=== PATIENT | female | born 1990 | race American Indian/Alaskan Native ===

== ENCOUNTER 2017-12-03 13:44 | Emergency (ER) | payer SELFPAY ==
[2017-12-03] MEDS ORDERED: NACL 0.9% 1000 ML 1,000 ML IV ONE (14:56)
--- NOTE | 2017-12-03 14:58 | Emergency Department Report ---
Blank Doc - Documentation Documentation: Patient is a 27-year-old white female past medical history of atypical chest pain and heart murmur who is approximately 6 weeks and having spotting for the past several days. Patient on brief focused physical exam has a 3/6 systolic murmur there is no reproducible chest pain abdomen is soft and nontender. Patient will be moved to a treatment room last rechecked in including her beta quant and ultrasound taken.
[2017-12-03 15:27] LABS: Basophils % (Auto) 0.3 % (0.0-1.8); Eosinophils % (Auto) 0.5 % (0.0-4.3); Hematocrit 29.2 % (30.3-42.9); Hemoglobin 9.2 gm/dl (10.1-14.3); Lymphocytes % (Auto) 35.2 % (13.4-35.0); Mean Corpuscular HGB Conc 31 % (30-34); Monocytes # (Auto) 0.4 K/mm3 (0.0-0.8); Monocytes % (Auto) 7.1 % (0.0-7.3); Platelet Count 230 K/mm3 (140-440); Red Blood Count 4.25 M/mm3 (3.65-5.03); Red Cell Distribution Width 18.7 % (13.2-15.2)
[2017-12-03 15:29] LABS: Mean Corpuscular Hemoglobin 22 pg (28-32); Mean Corpuscular Volume 69 fl (79-97)
[2017-12-03 15:30] LABS: Bacteria,Urine 1+ /HPF (Negative); Bilirubin,Urine NEG (Negative); Blood,Urine MOD (Negative); Color,Urine Yellow (Yellow); Mucus,Urine 3+ /HPF
[2017-12-03 15:31] LABS: BUN/Creatinine Ratio 17; Blood Urea Nitrogen 10 mg/dL (7-17); Calcium 8.6 mg/dL (8.4-10.2); Hemolysis Index 1
--- NOTE | 2017-12-03 17:20 | Ultrasound Report ---
FINAL REPORT EXAM: US OB TRANSVAGINAL HISTORY: preg with vag bleed TECHNIQUE: Trans vaginal ultrasound obstetrical transvaginal PRIORS: None. FINDINGS: There is gestational sac within the uterus. pole is identified with crown-rump length of 2.2 millimeters corresponding to estimated gestational age of 5 weeks 5 days with estimated date of delivery July 31, 2018 A yolk sac is identified. cardiac activity is present with heart rate of 70 beats per minute. Noted is a hypoechoic focus within the myometrium anteriorly and body of the uterus measuring 1.1 x 1.0 x 1.5 centimeters most consistent with a fibroid. Right ovary is 3.0 x 2.0 x 2.5 centimeters there is a 1.9 centimeter right ovarian cyst Left ovary is 3.7 x 1.9 x 3.1 centimeters a 2 centimeter right ovarian echogenic focus seen could be hemorrhagic cyst. IMPRESSION: Single live intrauterine gestation estimated at 5 weeks 5 days
--- NOTE | 2017-12-03 17:22 | Ultrasound Report ---
FINAL REPORT EXAM: US OB < = 14 WEEKS FETUS HISTORY: preg with vag bleed TECHNIQUE: Ultrasound obstetrical transabdominal PRIORS: None. FINDINGS: There is gestational sac within the uterus. pole is identified with crown-rump length of 2.2 millimeters corresponding to estimated gestational age of 5 weeks 5 days with estimated date of delivery July 31, 2018 A yolk sac is identified. cardiac activity is present with heart rate of 70 beats per minute. Noted is a hypoechoic focus within the myometrium anteriorly and body of the uterus measuring 1.1 x 1.0 x 1.5 centimeters most consistent with a fibroid. Right ovary is 3.0 x 2.0 x 2.5 centimeters there is a 1.9 centimeter right ovarian cyst Left ovary is 3.7 x 1.9 x 3.1 centimeters a 2 centimeter right ovarian echogenic focus seen could be hemorrhagic cyst. IMPRESSION: Single live intrauterine gestation estimated at 5 weeks 5 days
--- NOTE | 2017-12-03 18:47 | Emergency Department Report ---
ED General Adult HPI - General Chief complaint: Chest Pain Stated complaint: CHEST PAIN/BODY HURT Time Seen by Provider: 12/03/17 14:50 Source: patient Mode of arrival: Ambulatory Limitations: No Limitations - History of Present Illness Initial comments: Patient is a 27-year-old white female past medical history of atypical chest pain and heart murmur who is approximately 6 weeks and having spotting for the past several days. Patient also states she has some mild crampiness in the suprapubic region. Patient she does have some discomfort when she urinates. The patient also states she has some mild shortness of breath as sharp pains in the chest. Patient states that chest pain is chronic. During her last she did have some heart complications. 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 Patient is not a lead bi developer here. Pain in the chest and abdomen is 7 out of 10 in severity. - Related Data Previous Rx's Medication Instructions Recorded Last Taken Type Nitrofurantoin Monohyd/M-Cryst 100 mg PO BID #14 capsule 12/03/17 Unknown Rx [Macrobid 100 mg Capsule] Allergies Allergy/AdvReac Type Severity Reaction Status Date / Time No Known Allergies Allergy Unverified 12/03/17 13:52 ED Review of Systems ROS: Stated complaint: CHEST PAIN/BODY HURT Other details as noted in HPI Comment: All other systems reviewed and negative ED Past Medical Hx - Past Medical History Previous Medical History?: Yes Additional medical history: heart murmur - Surgical History Past Surgical History?: Yes Additional Surgical History: right valve replacement - Social History Smoking Status: Never Smoker Substance Use Type: None - Medications Home Medications: Home Medications Medication Instructions Recorded Confirmed Last Taken Type Nitrofurantoin Monohyd/M-Cryst 100 mg PO BID #14 capsule 12/03/17 Unknown Rx [Macrobid 100 mg Capsule] ED Physical Exam - General Limitations: No Limitations General appearance: alert, in no apparent distress - Head Head exam: Present: atraumatic, normocephalic - Eye Eye exam: Present: normal appearance - ENT ENT exam: Present: mucous membranes moist - Neck Neck exam: Present: normal inspection - Respiratory Respiratory exam: Present: normal lung sounds bilaterally. Absent: respiratory distress, wheezes, rales, rhonchi - Cardiovascular Cardiovascular Exam: Present: regular rate, normal rhythm, systolic murmur (3/6) . Absent: diastolic murmur, rubs, gallop - GI/Abdominal GI/Abdominal exam: Present: soft, tenderness (mild suprapubic tenderness), normal bowel sounds. Absent: distended, guarding, rebound, rigid - Extremities Exam Extremities exam: Present: normal inspection - Back Exam Back exam: Present: normal inspection - Neurological Exam Neurological exam: Present: alert, oriented X3 - Psychiatric Psychiatric exam: Present: normal affect, normal mood - Skin Skin exam: Present: warm, dry, intact, normal color. Absent: rash ED Course Vital Signs 12/03/17 13:52 Temperature 98.2 F Pulse Rate 66 Respiratory 18 Rate Blood Pressure 111/61 O2 Sat by Pulse 100 Oximetry ED Medical Decision Making - Lab Data Result diagrams: 12/03/17 15:10 12/03/17 15:10 Lab Results 12/03/17 12/03/17 12/03/17 Range/Units 15:00 15:10 15:10 WBC 5.8 (4.5-11.0) K/mm3 RBC 4.25 (3.65-5.03) M/mm3 Hgb 9.2 L (10.1-14.3) gm/dl Hct 29.2 L (30.3-42.9) % MCV 69 L (79-97) fl MCH 22 L (28-32) pg MCHC 31 (30-34) % RDW 18.7 H (13.2-15.2) % Plt Count 230 (140-440) K/mm3 Lymph % (Auto) 35.2 H (13.4-35.0) % [place] % (Auto) 7.1 (0.0-7.3) % Eos % (Auto) 0.5 (0.0-4.3) % Baso % (Auto) 0.3 (0.0-1.8) % Lymph # 2.0 (1.2-5.4) K/mm3 [place] # 0.4 (0.0-0.8) K/mm3 Eos # 0.0 (0.0-0.4) K/mm3 Baso # 0.0 (0.0-0.1) K/mm3 Seg Neutrophils % 56.9 (40.0-70.0) % Seg Neutrophils # 3.3 (1.8-7.7) K/mm3 Sodium 135 L (137-145) mmol/L Potassium 3.7 (3.6-5.0) mmol/L Chloride 103.5 (98-107) mmol/L Carbon Dioxide 23 (22-30) mmol/L Anion Gap 12 mmol/L BUN 10 (7-17) mg/dL Creatinine 0.6 L (0.7-1.2) mg/dL Estimated GFR > 60 ml/min BUN/Creatinine Ratio 17 % Glucose 90 (65-100) mg/dL Calcium 8.6 (8.4-10.2) mg/dL HCG, Quant (0-4) mIU/mL Urine Color Yellow (Yellow) Urine Turbidity Clear (Clear) Urine pH 6.0 (5.0-7.0) Ur Specific [place] 1.031 H (1.003-1.030) Urine Protein 30 mg/dl (Negative) mg/dL Urine Glucose (UA) Neg (Negative) mg/dL Urine Ketones Neg (Negative) mg/dL Urine Blood Mod (Negative) Urine Nitrite Neg (Negative) Urine Bilirubin Neg (Negative) Urine Urobilinogen 2.0 (<2.0) mg/dL Ur Leukocyte Esterase Sm (Negative) Urine WBC (Auto) 8.0 H (0.0-6.0) /HPF Urine RBC (Auto) 4.0 (0.0-6.0) /HPF U Epithel Cells (Auto) 9.0 (0-13.0) /HPF Urine Bacteria (Auto) 1+ (Negative) /HPF Urine Mucus 3+ /HPF 12/03/ Range/Units 15:10 WBC (4.5-11.0) K/mm3 RBC (3.65-5.03) M/mm3 Hgb (10.1-14.3) gm/dl Hct (30.3-42.9) % MCV (79-97) fl MCH (28-32) pg MCHC (30-34) % RDW (13.2-15.2) % Plt Count (140-440) K/mm3 Lymph % (Auto) (13.4-35.0) % [place] % (Auto) (0.0-7.3) % Eos % (Auto) (0.0-4.3) % Baso % (Auto) (0.0-1.8) % Lymph # (1.2-5.4) K/mm3 [place] # (0.0-0.8) K/mm3 Eos # (0.0-0.4) K/mm3 Baso # (0.0-0.1) K/mm3 Seg Neutrophils % (40.0-70.0) % Seg Neutrophils # (1.8-7.7) K/mm3 Sodium (137-145) mmol/L Potassium (3.6-5.0) mmol/L Chloride (98-107) mmol/L Carbon Dioxide (22-30) mmol/L Anion Gap mmol/L BUN (7-17) mg/dL Creatinine (0.7-1.2) mg/dL Estimated GFR ml/min BUN/Creatinine Ratio % Glucose (65-100) mg/dL Calcium (8.4-10.2) mg/dL HCG, Quant 37201 H (0-4) mIU/mL Urine Color (Yellow) Urine Turbidity (Clear) Urine pH (5.0-7.0) Ur Specific [place] (1.003-1.030) Urine Protein (Negative) mg/dL Urine Glucose (UA) (Negative) mg/dL Urine Ketones (Negative) mg/dL Urine Blood (Negative) Urine Nitrite (Negative) Urine Bilirubin (Negative) Urine Urobilinogen (<2.0) mg/dL Ur Leukocyte Esterase (Negative) Urine WBC (Auto) (0.0-6.0) /HPF Urine RBC (Auto) (0.0-6.0) /HPF U Epithel Cells (Auto) (0-13.0) /HPF Urine Bacteria (Auto) (Negative) /HPF Urine Mucus /HPF - EKG Data -: EKG Interpreted by [place] EKG shows normal: sinus rhythm, axis, intervals, QRS complexes, ST-T waves Rate: normal - EKG Data Interpretation: other (RBBB) - Radiology Data Patient is a 27-year-old white female past medical history of atypical chest pain and heart murmur who is approximately 6 weeks and having spotting for the past several days. Patient on brief focused physical exam has a 3/6 systolic murmur there is no reproducible chest pain abdomen is soft and nontender. - Medical Decision Making Patient has a viable IUP present. Patient also has a urinary tract infection most likely causing a lot of her discomfort. Patient started on Macrobid. Patient will be referred to cardiology regarding her murmur. Patient also be given the DESK REPRESENTATIVE and the patient be discharged home. Critical care attestation.: If time is entered above; I have spent that time in minutes in the direct care of this critically ill patient, excluding procedure time. ED Disposition Clinical Impression: Systolic murmur, Atypical chest pain, UTI (urinary tract infection) during Disposition: TO HOME OR SELFCARE Is pt being admited?: No Does the pt Need Aspirin: No Condition: Stable Instructions: Chest Pain (ED), Urinary Tract Infection in Women (ED) Referrals: GRIS BISHOP MD [Staff Physician] - 3-5 Days ARIEL POSEY MD [Staff Physician] - 3-5 Days Time of Disposition: 18:48
[2017-12-03 19:05] VITALS: BP 122/68
== END 2017-12-03 18:50 | disposition home or self-care (01) ==
LOC: ED 13:44
DX: O23.41 Unspecified infection of urinary tract in pregnancy, first trimester (principal); R01.1 Cardiac murmur, unspecified; R07.89 Other chest pain; Z3A.01 Less than 8 weeks gestation of pregnancy
CPT/HCPCS: 36415; 76801; 76817; 80048; 81001; 84702; 85025; 93005; 93010; 99284; J7030